=== PATIENT | female | born 2000 | race Caucasian/White ===

== ENCOUNTER 2023-09-06 10:29 | Emergency (ER) | payer OTHER ==
[~2023-09-06] VITALS: Ht 175.3 cm; Wt 65.9 kg
[2023-09-06 11:18] LABS: PH 5.5 (5.0-8.5); URINE APPEARANCE TURBID (CLEAR/HAZY); URINE BLOOD 3+ (NEGATIVE); URINE COLOR Dark Yellow (YELLOW); URINE GLUCOSE NEGATIVE (NEGATIVE); URINE KETONE TRACE (NEGATIVE); URINE NITRATE NEGATIVE (NEGATIVE); URINE PROTEIN(semi-quant) 2+ (NEGATIVE)
[2023-09-06 11:29] LABS: BASO % 0.2 % (0.0-2.0); EOS % 0.2 % (0.0-4.0); GRAN # 10.7 K/mm3 (1.4-6.5); GRAN % 84.8 % (42.2-75.2); HEMATOCRIT 37.5 % (37.0-47.0); LYMPH # 0.6 K/mm3 (1.2-3.4); LYMPH % 4.9 % (20.0-51.0); MEAN CELL VOLUME 90 fl (80.0-100.0); MEAN CORPUSCULAR HEMOGLOBIN 29 pg (27-31); MEAN CORPUSCULAR HGB CONC 32 g/dl (33.0-37.0); MEAN PLATELET VOLUME 10.4 fl (7.4-10.4); MONO # 1.2 K/mm3 (0.1-0.6); MONO % 9.3 % (1.7-9.3); PLATELET COUNT 240 K/mm3 (130-400); RED BLOOD COUNT 4.19 M/mm3 (4.10-5.30); REDCELL DISTRIBUTION WIDTH-CV 13.6 % (11.5-14.5)
[2023-09-06] MEDS ORDERED: Ketorolac 30 MG/ML VIAL IV ONE (11:30)
[2023-09-06] MEDS ORDERED: NS 1,000 ML IV ONE (11:30)
[2023-09-06] MEDS ORDERED: Ondansetron 4 MG/2 ML VIAL IV ONE (11:30)
[2023-09-06 11:46] LABS: COLLECTION METHOD CLEAN CATCH; URINE WBC 0-2 /hpf (0-2)
[2023-09-06 11:47] LABS: URINE BACTERIA RARE /hpf (NONE SEEN); URINE RBC 20-50 /hpf (0-2)
[2023-09-06 11:55] LABS: ALBUMIN 3.6 g/dL (3.5-5.0); BILIRUBIN,TOTAL 1.3 mg/dL (0.2-1.2); CALCIUM 9.5 mg/dL (8.4-10.2); CREATININE, serum 1.24 mg/dL (0.57-1.11); POTASSIUM 3.8 mEq/L (3.5-4.5); TOTAL PROTEIN 7.9 g/dl (6.2-8.1)
[2023-09-06] MEDS ORDERED: Iohexol 300 - 100 ML VIAL IV ONE (12:32)
[2023-09-06] MEDS ORDERED: NS 100 ML IV SCH (12:33)
[2023-09-06] MEDS ORDERED: cefTRIAXone 1 G in Water For Injection,Sterile 10 ML IV ONE (13:00)
[2023-09-06] MEDS ORDERED: CEFTIN 250250 MG/TAB PO (13:29)
[2023-09-06] MEDS ORDERED: NORCO 325 MG-51 TAB PO (13:29)
[2023-09-06] MEDS ORDERED: ZOFRAN ODT4 MG PO (13:29)
[2023-09-06 13:57] VITALS: BP 104/68; PULSE 69; TEMP 98
== END 2023-09-06 13:57 | disposition home or self-care (01) ==
LOC: COL.ER 10:29
PROVIDERS: Nurse Practitioner
DX: N12 Tubulo-interstitial nephritis, not specified as acute or chronic (principal)
CPT/HCPCS: J0696; J1885; J2405; J7030; Q9967